=== PATIENT | female | born 1990 | race Caucasian/White ===

== ENCOUNTER 2018-10-22 04:50 | Day surgery (SDC) | payer OTHER ==
[2018-10-22] MEDS ORDERED: ROCURONIUM BROMIDE 10 MG/ML 5ML VIAL ONE (08:48)
[2018-10-22] MEDS ORDERED: LACTATED RINGERS 1,000 ML IV.SOLN IV ONE ×2 (08:48)
[2018-10-22] MEDS ORDERED: SUGAMMADEX SODIUM 200 MG/2 ML VIAL IV ONE (08:48)
[2018-10-22] MEDS ORDERED: ONDANSETRON HCL/PF 4 MG/ 2ML VIAL ONE (08:48)
[2018-10-22] MEDS ORDERED: LIDOCAINE HCL 2% PF 100MG/5ML VIAL IJ ONE (08:48)
[2018-10-22] MEDS ORDERED: BACITRACIN 50,000 UNIT VIAL IR ONE (08:48)
[2018-10-22] MEDS ORDERED: MIDAZOLAM HCL 2 MG/2 ML VIAL ONE (08:48)
[2018-10-22] MEDS ORDERED: SCOPOLAMINE HYDROBROMIDE 1.5MG/72HR PATCH TD ONE (08:48)
[2018-10-22] MEDS ORDERED: GELATIN SPONGE,ABSORB/PORCINE (SIZE 100) 1 EACH SPONGE TP ONE (08:48)
[2018-10-22] MEDS ORDERED: THROMBIN (BOVINE) 20,000 UNIT VIAL TP ONE (08:48)
[2018-10-22] MEDS ORDERED: DEXAMETHASONE SODIUM PHOSPHATE 10 MG/ML VIAL ONE (08:48)
[2018-10-22] MEDS ORDERED: ceFAZolin SODIUM 1 GM VIAL ONE (08:48)
[2018-10-22] MEDS ORDERED: SEVOFLURANE 250 ML LIQUID IH ONE (08:48)
[2018-10-22] MEDS ORDERED: PHENYLEPHRINE HCL 10 MG/1 ML ONE (08:48)
[2018-10-22] MEDS ORDERED: PROPOFOL 200 MG/20 ML VIAL IV ONE (08:48)
[2018-10-22] MEDS ORDERED: fentaNYL CITRATE/PF 100 MCG/2 ML INJ. ONE (08:48)
--- NOTE | 2018-11-19 14:07 | Operative Note ---
PREOPERATIVE DIAGNOSIS: Spondylolisthesis grade 2, L5-S1, with central and bilateral neural foraminal stenosis and segmental spinal instability. POSTOPERATIVE DIAGNOSIS: Spondylolisthesis grade 2, L5-S1, with central and bilateral neural foraminal stenosis and segmental spinal instability. PROCEDURES PERFORMED: 1. Wide laminectomy, L5, with complete foraminotomy and facetectomies. 2. Placement of pedicle screw and adina construct bilaterally at L5-S1. 3. Manipulation of spine under general anesthesia with reduction of the spondylolisthesis at L5-S1. 4. Laminectomy with radical discectomy 5. Insertion of prosthetic intervertebral cage at the L5-S1 level. 6. Transforaminal lumbar interbody fusion of the lumbar spine at L5-S1 utilizing autologous bone graft and osteoconductive bone graft material. SURGEON: Madhu Deluca Jr., M.D. STAFF RN: KENJI Rodriguez BC ANESTHESIA: General. COMPLICATIONS: None. CONDITION FOLLOWING THE PROCEDURE: Good. OPERATIVE FINDINGS: This patient is suffering from spinal stenosis at the L5-S1 level with bilateral neural foraminal and central stenosis caused by a spondylolisthesis with angular and translational instability. The patient had failed prolonged conservative management and agreed to surgical care in an effort to reduce the spondylolisthesis, restore the intervertebral disc height, and provide stability at the L5-S1 level and normal sagittal balance. All of the planned surgical goals were accomplished through pedicle screw and adina placement. The bone was found to be of adequate strength to retain the pedicle screws and provide a fulcrum for reduction maneuver, leading to anatomic reduction at L5-S1 and sikh of normal lumbar lordosis. DESCRIPTION OF PROCEDURE: The patient was taken to the operating room and general anesthesia induced. In the prone position, the back was thoroughly scrubbed and sterilely prepped and draped. A longitudinal incision was made and the paraspinous muscles were stripped to the tip of the transverse process at the affected levels. Bilaterally, pedicle screws and rods were placed under distraction to restore intervertebral disc height and maintain normal lumbar lordosis. On the right side, a radical laminectomy was performed including facetectomy and foraminotomy at the affected level(s). Bipolar electrocautery was used to achieve hemostasis. Resection of bone and ligamentous tissue continued until there was complete assurance of decompression of any existing central and foraminal spinal stenosis. With the dura and nerve root identified and appropriately retracted and decompressed, a half-inch osteotome was then used to osteotomize the annulus at its origin insertion on the edges of the affected vertebral bodies. A quarter-inch osteotome was then used to complete the division of the annulus at its medial and lateral margins. Various pituitary rongeurs were then used to effect excision of the annulus along with all the intradiscal material. A combination of curettage and endplate scraping instrumentation was then used to remove the cartilaginous endplates down to the intact subchondral bone. X-rays were taken to confirm that the depth of the resection was adequate. If necessary, autologous bone material was prepared with stem cell aspirate from the vertebral bodies acquired during exposure. All of the decompression bone was morselized and placed into the disc space on the far side. The appropriately sized interbody cage was then chosen and packed with autologous bone graft as well. The interbody prosthetic cage was then driven into the disc space while protecting the dura and exiting nerve root down to the appropriate depth and location as determined radiographically. The cage insertion tool was removed and the remainder of the space was packed with autologous bone graft and occasionally bone graft director of optimization as well. The affected levels were similarly treated in terms of bone graft and cage insertion. X-rays confirmed adequate and ideal placement of the interbody cage which was then compressed in location by loosening the upper caps to the pedicle screw adina construct and allowing additional lordosis to be produced, thus locking the intervertebral cage in position. A combination of remaining autologous bone and osteoconductive bone graft material, nanOss, prepared with stem cells was then placed along the exposed transverse processes and lateral facet joint constituting a posterolateral fusion. Gelfoam soaked in thrombin was then placed over all the exposed dura and exiting nerve root prior to placing the bone graft to be sure bone graft would not reside in an area that might precipitate stenosis. The self-retaining retractors were then removed, which had been placed earlier during exposure of the lumbar spine and pedicle screw and transverse processes. Drains may or may not have been inserted as indicated in the operative note as the lumbar fascia was approximated using a locking 0 Vicryl suture. Individual subcutaneous sutures were then placed which also were placed strategically through the fascia to eliminate space. Stainless steel ad then approximated the skin and the patient was taken to the recovery room with a normal sponge count and, in the recovery room, a gross motor and sensory examination was confirmed to be normal. Once the pedicle screws were in place, manipulation was carried out before the fixation to provide reduction forces, restoring normal lumbar lordosis, intervertebral disc space, and reduction of the spondylolisthesis to neutral. MADHU DELUCA JR., M.D. ELINA/rebeca (Please copy [facility] provider when applicable) Job #[id number] DOMINIC
== END 2018-10-22 12:44 | disposition other institution (70) ==
LOC: OPSURG 04:50
PROVIDERS: ATTEND Orthopaedic Surgery
DX: M48.061 Spinal stenosis, lumbar region without neurogenic claudication (principal); M43.17 Spondylolisthesis, lumbosacral region; M53.2X7 Spinal instabilities, lumbosacral region
CPT/HCPCS: 86885; 86900; 86920; J0690; J2001; J2250; J2370; J2405; J2704; J3010; P9040; A9270-GY; J3490; J7120